=== PATIENT | male | born 2000 | race Hispanic/Latino ===

== ENCOUNTER 2021-01-20 11:09 | Emergency (ER) | payer MEDICAID ==
[~2021-01-20] VITALS: Ht 162.6 cm; Wt 59.0 kg
[2021-01-20] MEDS ORDERED: MORPHINE 4 MG SYG ONE (11:17)
[2021-01-20] MEDS ORDERED: ONDANSETRON 4MG INJ ONE (11:17)
[2021-01-20] MEDS ORDERED: ONDANSETRON 4MG INJ IVP SCH (11:30)
[2021-01-20] MEDS ORDERED: LACTATED RINGERS 1000ML 1,000 ML IV SCH (11:30)
[2021-01-20] MEDS ORDERED: MORPHINE 4 MG SYG IVP SCH (11:30)
[2021-01-20 11:31] LABS: BASOPHILS % (AUTO) 0.8 % (0.0-5.0); HEMATOCRIT 47.9 % (42-54); LYMPHOCYTES % (AUTO) 37.3 % (21.0-51.0); MEAN CORPUSCULAR HEMOGLOBIN 28.6 pg (27.0-33.0); MEAN CORPUSCULAR HGB CONC 33.6 g/dL (32.0-36.0); MEAN CORPUSCULAR VOLUME 85.1 fL (80-100); MONOCYTES % (AUTO) 7.7 % (3.0-13.0); NEUTROPHILS % (AUTO) 51.9 % (40.0-77.0); PLATELET COUNT (AUTO) 243 K/uL (130-400); RED BLOOD CELL COUNT(AUTO) 5.63 MIL/uL (4.50-6.20); RED CELL DISTRIBUTION WIDTH 13.3 % (11.0-15.5); WHITE BLOOD COUNT (AUTO) 3.9 K/uL (4.8-10.8)
[2021-01-20 11:41] LABS: POTASSIUM 3.8 mmol/L (3.5-5.1)
[2021-01-20 11:51] LABS: ALBUMIN 4.5 g/dL (3.5-5.0); BILIRUBIN,TOTAL 0.4 mg/dL (0.2-1.0); INR 0.99 (0.85-1.15); PROTHROMBIN TIME 10.8 SEC (9.6-11.6); TOTAL PROTEIN, SERUM 8.3 g/dL (6.0-8.3)
[2021-01-20 11:52] LABS: PARTIAL THROMBOPLASTIN TIME 30.2 SEC (26.3-35.5)
[2021-01-20] MEDS ORDERED: IOHEXOL-350 75 ML VIAL IV ONE (11:53)
[2021-01-20 13:05] LABS: APPEARANCE,URINE Clear (CLEAR); BILIRUBIN,URINE Negative (NEGATIVE); COLOR,URINE Yellow (YELLOW); GLUCOSE, URINE (UA) Negative (NEGATIVE); KETONES,URINE Negative (NEGATIVE); LEUKOCYTE ESTERASE ,URINE Negative (NEGATIVE); NITRATE,URINE Negative (NEGATIVE); OCCULT BLOOD,URINE Negative (NEGATIVE); PH,URINE 5.5 (5.0-8.0); PROTEIN,URINE Negative (NEGATIVE); UROBILINOGEN,URINE 0.2 mg/dL (0.2-1.0)
[2021-01-20] MEDS ORDERED: 0.9%NACL 1000ML 1,000 ML IV SCH (14:30)
[2021-01-20] MEDS ORDERED: KETOROLAC 30MG VIAL (30MG/ML) IM SCH (14:30)
[2021-01-20] MEDS ORDERED: ORPHENADRINE CITRATE 30 MG/ML ML ONE (16:18)
[2021-01-20] MEDS ORDERED: MORPHINE 2 MG SYG ONE (16:18)
[2021-01-20] MEDS ORDERED: ORPHENADRINE CITRATE 30 MG/ML ML IV ONE (16:30)
[2021-01-20] MEDS ORDERED: MORPHINE 2 MG SYG IVP ONE (16:30)
[2021-01-20 16:44] VITALS: BP 134/74
[2021-01-20] MEDS ORDERED: LIDOCAINE 5% TOPICAL PATCH TP ONE (17:00)
[2021-01-20] MEDS ORDERED: CYCL-309 PO (17:09)
[2021-01-20] MEDS ORDERED: IBUP-2070 PO (17:09)
== END 2021-01-20 17:30 | disposition home or self-care (01) ==
LOC: EDH 11:09 → EEVIPCON 11:09 → EDH 17:30
DX: S30.0XXA Contusion of lower back and pelvis, initial encounter (principal); R07.89 Other chest pain; R10.9 Unspecified abdominal pain; Z79.1 Long term (current) use of non-steroidal anti-inflammatories (NSAID); W01.0XXA Fall on same level from slipping, tripping and stumbling without subsequent striking against object, initial encounter; Y93.89 Activity, other specified; Y92.89 Other specified places as the place of occurrence of the external cause; Y99.8 Other external cause status
CPT/HCPCS: 36415; 70450; 71270; 72125; 74178; 80053; 81003; 82550; 83690; 83874; 84484; 85025; 85610; 85730; 96361; 96372; 96374; 96375; 96376; 99285; J1885; J2270; J2360; J2405; J3490; Q9967